=== PATIENT | male | born 1995 | race African-American/Black ===

== ENCOUNTER 2016-10-31 17:54 | Inpatient (IN) | payer OTHER ==
[~2016-10-31] VITALS: Ht 175.3 cm; Wt 112.5 kg
--- NOTE | ~2016-10-31 | PN ---
Unit #: [id number] #: [id number] Patient: DAKSHA LAND [id number] [facility] [address] [place] [address] [id number] MR#: [id number] NAME: DAKSHA LAND ROOM: [facility] Age: 21 Sex: M Admission Date: 10/31/2016 : 1995 Attending Physician: Yusuf Tobar M.D. Admitting Physician: Yusuf Tobar M.D. Primary Care Physician: Primary Care Physician Anamaria LANG NOTES DATE November 05, 2016 DISCUSSION Mr. Land is a 21-year-old male, who was seen today and chart was reviewed and the case was discussed with the staff. He has been anxious, withdrawn, but has not shown any agitation, or irritability, or behavior problems, and he has been cooperative with the treatment recommendations, and he has been taking the medications and tolerating them fairly well with no reported side effects. MENTAL STATUS EXAMINATION Young male, who was casually dressed with fair personal hygiene and appears to be in no acute distress or discomfort. He was awake and alert with impaired attention and concentration. His mood is anxious with a congruent affect. His speech is slow and tangential. His thought processes are disorganized with some looseness of associations. He denies any suicidal or homicidal ideations. His insight and judgment remain significantly impaired. TREATMENT PLAN 1. We will continue him on his current medications and treatment protocol, and will monitor his response to the medications, and make further adjustments as needed. 2. We will continue to followup. Dictated by... Yonas Rogers/kalpesh TD: 11/06/2016 07:46 JOB #: [id number] Unit #: [id number] #: [id number] Patient: DAKSHA LAND PROGRESS NOTES Page 1 of 1 X Yusuf Tobar MD PROGRESS NOTE
--- NOTE | ~2016-10-31 | PN ---
Unit #: [id number] #: [id number] Patient: DAKSHA LAND [id number] [facility] [address] [place] [address] [id number] I MR#: [id number] NAME: DAKSHA LAND ROOM: [facility] Age: 21 Sex: M Admission Date: 10/31/2016 : 1995 Attending Physician: Yusuf Tobar M.D. Admitting Physician: Yusuf Tobar M.D. Primary Care Physician: Primary Care Physician Anamaria LANG NOTES DATE OF SERVICE 11/02/2016 DISCUSSION Mr. Land is a 21-year-old male who was seen today. Chart was reviewed and case was discussed with staff. He has been anxious, withdrawn, and rather seclusive to himself and has been exhibiting bizarre behavior with blunted affect, minimal interaction, and poor eye contact. Meanwhile, he has been taking the medications and tolerating them fairly well with no reported side effects. MENTAL STATUS EXAMINATION Young male who is casually dressed with fair personal hygiene, appears to be in no acute distress or discomfort. The patient was awake and alert with impaired attention and concentration. His mood is anxious with congruent affect. His speech is slow and tangential. His thought processes were disorganized with some looseness of associations and flight of ideas. His insight and judgment remain significantly impaired. TREATMENT PLAN 1. We will continue him on his current medications and treatment protocol. We will monitor his response to the medications and make further adjustments as needed. 2. We will continue to follow up. Dictated by... Yonas Rogers/luis eduardo TD: 11/02/2016 11:38 JOB #: [id number] Unit #: [id number] #: [id number] Patient: DAKSHA LAND PROGRESS NOTES Page 1 of 1 X Yusuf Tobar MD PROGRESS NOTE
--- NOTE | ~2016-10-31 | PA ---
Unit #: [id number] #: [id number] Patient: DKASHA SIU [id number] [facility] [address] [place] [address] [id number] I MR#: [id number] NAME: DAKSHA SIU ROOM: P131 Age: 21 Sex: M Admission Date: 10/31/2016 : 1995 Date of Assessment: 11/01/2016 Attending Physician: Yusuf Tobar M.D. Admitting Physician: Yusuf Tobar M.D. Primary Care Physician: Primary Care Physician No PSYCHIATRIC ASSESSMENT DATE OF SERVICE 11/01/2016. IDENTIFYING DATA Mr. Siu is a 21-year-old, single, male, who is a resident of [place], [place], and was referred to us from his local [facility]. CHIEF COMPLAINT "Suicidal ideation and plan to overdose on any pills I can find." HISTORY OF PRESENT ILLNESS A 21-year-old male, who is active with [facility] and was referred here after the patient reported he was having suicidal ideation with a plan to overdose on pills and stated that he is having homicidal thoughts without a plan towards a kid that he goes to [facility] and the patient refused to give the individual's name and the patient reports that he hears both male and female voices that tell him that he is going to feel that everything and reports that he is feeling suicidal because he moved from [place] 2 years ago and has no family contact and is failing at the [employer] for college entrance "I've nothing and no one." The patient reports that he smokes cannabis 3 to 4 times weekly to self medicate his depression with the last use a couple of weeks ago and does report increasing depression, anxiety, irritability, feelings of hopelessness and helplessness, and command auditory hallucinations and as such, recommendation for inpatient level of care for safety and stabilization was made and the patient was transferred to us. SUBSTANCE ABUSE HISTORY The patient reports using cannabis 3 to 4 times a week. PAST PSYCHIATRIC HISTORY The patient has had psychiatric treatment in [place] and currently he has been receiving his treatment through [facility] and review of the medical records indicate that he has been on a monthly injection with a diagnosis of schizophrenia. PAST MEDICAL HISTORY No acute or chronic medical illnesses. ALLERGIES No known medication allergies. Unit #: [id number] #: [id number] Patient: DAKSHA SIU PERSONAL AND SOCIAL HISTORY A 21-year-old male, who reports that he is single, unemployed, and lives alone and has poor social support system. MENTAL STATUS EXAMINATION Young male, who was casually dressed with fair personal hygiene, appears to be in no acute distress or discomfort. He was awake and alert on interaction with intact orientation to time, place, and person. His mood was anxious and depressed with a congruent affect. His speech was slow and goal directed. He reports having suicidal ideations and auditory hallucinations. His insight and judgment remain significantly impaired. DIAGNOSTIC IMPRESSION Psychiatric: Chronic paranoid schizophrenia. Medical: None. Stressors: Moderate psychosocial stressors. TREATMENT PLAN 1. The patient has presented with a history of mood disorder and psychosis and has been decompensating and will need inpatient hospitalization for safety and stabilization. We will start him back on his home medications. We will adjust the medications and monitor response. 2. Supportive therapy was provided to the patient. 3. Safe, structured, and nourishing environment will be reported. ESTIMATED LENGTH OF STAY 4 to 5 days. ABILITY TO HELP SELF Limited. WILLINGNESS TO HELP SELF The patient appears to be willing to help self. STRENGTHS 1. Communicative. 2. Cooperative. PROBLEMS 1. Chronic dysphoric symptoms. 2. Poor social support system. DISCHARGE CRITERIA This will be contingent upon the patient's ability to show resolution of his depression and psychosis as well as ability to stay safe to himself, particularly after discharge from the hospital. Dictated by... Yonas Rogers/chel Unit #: [id number] #: [id number] Patient: DAKSHA SIU TD: 11/01/2016 08:03 JOB #: [id number] PSYCHIATRIC ASSESSMENT Page 1 of 1 X Yusuf Tobar MD X PSYCHIATRIC ASSESSMENT
--- NOTE | ~2016-10-31 | PN ---
Unit #: [id number] #: [id number] Patient: DAKSHA LAND [id number] [facility] [address] [place] [address] [id number] I MR#: [id number] NAME: DAKHSA LAND ROOM: P131 Age: 21 Sex: M Admission Date: 10/31/2016 : 1995 Attending Physician: Yusuf Tobar M.D. Admitting Physician: Yusuf Tobar M.D. Primary Care Physician: Primary Care Physician Anamaria YI PROGRESS NOTES DATE 11/03/2016 DISCUSSION Mr. Land is a 21-year-old male who was seen today and chart was reviewed and case was discussed with the staff. He has been anxious, withdrawn and rather seclusive. Meanwhile, he has been cooperative taking medications and tolerating them fairly well with no reported side effects. MENTAL STATUS EXAMINATION Young male who was casually dressed with fair personal hygiene and appears to be in no acute distress or discomfort. He was awake and alert on interaction with intact orientation. His mood was anxious with congruent affect. His speech is slow and restricted in content. His thought processes were disorganized with some looseness of associations and paranoid ideations and delusional behavior. His insight and judgement remains significantly impaired. TREATMENT PLAN 1. Will continue on his current medications and treatment protocol. Will monitor his response to the medications and make further adjustments as needed. 2. Will continue to follow up. Dictated by... Yonas Rogers/eduardo TD: 11/03/2016 17:55 JOB #: [id number] Unit #: [id number] #: [id number] Patient: DAKSHA LAND PROGRESS NOTES Page 1 of 1 X Yusuf Tobar MD PROGRESS NOTE
--- NOTE | ~2016-10-31 | DS ---
Unit #: [id number] #: [id number] [facility] [id number] [facility] [address] [place] [address] [id number] I MR#: [id number] NAME: DAKSHA LAND ROOM: 31 Age: 21 Sex: M Admission Date: 10/31/2016 : 1995 Discharge Date: 11/06/2016 Attending Physician: Yusuf Tobar M.D. Primary Care Physician: Primary Care Physician No DISCHARGE SUMMARY IDENTIFYING DATA Ms. Land is a 21-year-old single male, who is a resident of [place], [place] and was self-referred to the hospital from local [facility]. HISTORY OF PRESENT ILLNESS Please see initial psychiatric evaluation for details. PAST PSYCHIATRIC HISTORY Please see initial psychiatric evaluation for details. PAST MEDICAL HISTORY Please see initial psychiatric evaluation for details. HOSPITAL COURSE The patient was admitted to the Adult Psychiatric Unit at [facility] and was oriented to the hospital. Routine p.r.n. medications were initiated and started back on his home medications. The medications were adjusted and Risperdal was initiated and it was gradually titrated up to 2 mg twice a day with tolerability, therapeutic response and finally it was decided that he would be discharged and will continue treatment on an outpatient basis. DISCHARGE DIAGNOSES Psychiatric: [place] I Chronic paranoid schizophrenia. [place] II [place] III None. [place] IV Mild psychosocial stressors. [place] V DISCHARGE MEDICATIONS Risperdal 2 mg twice a day CONDITION AT DISCHARGE Stable. PROGNOSIS Fair. Unit #: [id number] #: [id number] Patient: DAKSHA LAND Dictated by... Yonas Rogers/kalpesh TD: 11/07/2016 10:47 JOB #: [id number] DISCHARGE SUMMARY Page 1 of 1 X Yusuf Tobar MD X DISCHARGE SUMMARY
--- NOTE | ~2016-10-31 | HP ---
Unit #: [id number] #: [id number] Patient: DAKSHA LAND [id number] [place] [address] [id number] MR#: [id number] NAME: DAKSHA LAND ROOM: P131 Age: 21 Sex: M Admission Date: 10/31/2016 : 1995 Attending Physician: Yusuf Tobar M.D. Admitting Physician: Yusuf Tobar M.D. Primary Care Physician: Primary Care Physician No HISTORY AND PHYSICAL HISTORY OF PRESENT ILLNESS Daksha is a 21-year-old male admitted to [address] [place] [address] with depression and verbalizing homicidal and suicidal ideation. PAST MEDICAL HISTORY Nothing significant. PAST SURGICAL HISTORY Nothing reported. ALLERGIES No known drug allergies. SOCIAL HISTORY Smokes less than 1/2 pack per day. Denies alcohol. Admits to using marijuana frequently. FAMILY HISTORY Medically noncontributory. REVIEW OF SYSTEMS CONSTITUTIONAL: No fever or chills. HEENT: Denies any sore throat, ear pain or runny nose. CARDIOVASCULAR: Denies chest pain, irregular heart rhythm or palpitations. CHEST: Denies shortness of breath or cough. No hemoptysis. GASTROINTESTINAL: Denies nausea, vomiting, diarrhea or chronic constipation. ENDOCRINE: Denies history of increased thirst or urination. No recent significant weight loss or gain. GENITOURINARY: Denies dysuria, frequency, or hematuria. SKIN: Denies any rashes. HEMATOLOGIC: Denies history of increased bleeding or bruising. MUSCULOSKELETAL: Denies any hot, swollen joints. No generalized muscle pain. NEUROLOGIC: Denies problems with vision or speech. No frequent, severe headaches. No numbness, tingling or weakness in any extremities. Denies loss of bladder or bowel control. CURRENT MEDICATIONS 1. Milk of Magnesia p.r.n. 2. Maalox p.r.n. 3. Tylenol p.r.n. 4. Nicotine patch 14 mg daily. Unit #: [id number] #: [id number] Patient: DAKSHA LAND PHYSICAL EXAMINATION GENERAL: Alert, well-nourished, in no apparent distress. VITAL SIGNS: Blood pressure 126/72, heart rate 72, respirations 16, temperature 98.6. WEIGHT: 248. HEIGHT: 5 feet 9 inches. SKIN: Warm and dry without rash or lesion. HEENT: Normocephalic. TMs not viewed. Oral and nasal passages clear. Conjunctivae clear. PERRLA. EOMs intact. NECK: Supple without lymphadenopathy or thyromegaly. HEART: Regular rate and rhythm without murmur. LUNGS: Clear. ABDOMEN: Soft, nontender. : Not done. EXTREMITIES: No evidence of cyanosis, clubbing or edema. Moves all without focal deficit. NEUROLOGICAL: Grossly within normal limits. Cranial Nerves: II: Visual paz are intact. III, IV AND : Extraocular movements are intact. Pupils are equal, round and reactive to light. V: Facial sensation is grossly normal. VII: Facial movements and expression are normal. VIII: Auditory acuity grossly intact. IX, X: Uvula is midline. Phonation is normal. XI: Patient shrugs shoulders and turns head normally. XII: Tongue protrudes in the midline. Sensory and Motor Function: Sensory and motor sensation is grossly normal. Motor: moves all extremities well. Coordination: Gait is normal. Deep Tendon Reflexes: Intact. IMPRESSION Psychiatric admission. RECOMMENDATIONS PSYCHIATRIC: Per psychiatrist. MEDICAL: See no contraindication to participate in facility's activities. MEDICAL PROGNOSIS Good. MEDICAL CONDITION Stable. Dictated by... Emily Quispe PChapinAChapin-Zaira. for Yonas Pompa/eduardo TD: 11/01/2016 20:32 JOB #: [id number] Unit #: [id number] #: [id number] Patient: DAKSHA LAND HISTORY AND PHYSICAL Page 1 of 1 X Emily Quispe HISTORY AND PHYSICAL
--- NOTE | ~2016-10-31 | PN ---
Unit #: [id number] #: [id number] Patient: DAKSHA LAND [id number] [facility] [address] [place] [address] [id number] I MR#: [id number] NAME: DAKSHA LAND ROOM: P131 Age: 21 Sex: M Admission Date: 10/31/2016 : 1995 Attending Physician: Yusuf Tobar M.D. Admitting Physician: Yusuf Tobar M.D. Primary Care Physician: Primary Care Physician Anamaria LANG NOTES DATE November 04, 2016 DISCUSSION Ms. Land is a 21-year-old male, with mood disorder and psychosis, who was seen today and chart was reviewed and the case was discussed with the staff. He has been anxious, withdrawn, and rather seclusive to himself but does appear to be showing some improvement in mood and daily function. He has been taking the medications and tolerating them fairly well with no reported side effects. MENTAL STATUS EXAMINATION Young male, who was casually dressed with fair personal hygiene and appears to be in no acute distress or discomfort. He was awake and alert with impaired attention and concentration. His mood is anxious with a congruent affect. His speech is slow and restricted in content. He denies any suicidal or homicidal ideations. His insight and judgment remain significantly impaired. TREATMENT PLAN 1. We will continue him on his current medications and treatment protocol, and will add Risperdal, and will continue to monitor his response, and make further adjustments as needed. 2. We will continue to followup. Dictated by... Yonas Rogers/kalpesh TD: 11/05/2016 08:13 JOB #: [id number] Unit #: [id number] #: [id number] Patient: DAKSHA LAND PROGRESS NOTES Page 1 of 1 X Yusuf Tobar MD PROGRESS NOTE
[2016-11-01 09:53] LABS: BASOPHIL% 0.8 % (0-2.5); EOSINOPHIL# 0.1 X10e3 (0-0.7); EOSINOPHIL% 1.9 % (0.0-7.0); HEMATOCRIT 44.2 % (38.0-50.0); HEMOGLOBIN 14.6 gm/dL (13.0-16.0); LYMPHOCYTE# 2.6 X10e3 (1.0-3.5); LYMPHOCYTE% 39.9 % (17.0-45.0); MEAN CORPUSCULAR HEMOGLOBIN 29.7 PG (28-34); MONOCYTE# 0.6 X10e3 (0-1.0); MONOCYTE% 9.4 % (3.0-12.0); NEUTROPHIL# 3.1 X10e3 (1.5-7.1); PLATELET COUNT 300 X10e3 (140-420); RED BLOOD COUNT 4.91 X10e (3.90-5.60); RED CELL DISTRIBUTION WIDTH 12.6 % (11.0-15.5); WHITE BLOOD COUNT 6.4 X10e3 (4.0-10.5)
[2016-11-01 10:12] LABS: URINE APPEARANCE CLEAR; URINE BILIRUBIN NEG (NEG); URINE BLOOD NEG (NEG); URINE COLOR YELLOW; URINE GLUCOSE NEG (NEG); URINE KETONE NEG (NEG); URINE LEUKOCYTE ESTERASE NEG (NEG); URINE NITRATE NEG (NEG); URINE PROTEIN NEG (NEG); URINE SPECIFIC GRAVITY 1.012 (1.003-1.035); URINE UROBILINOGEN 0.2 MG/DL (NEG)
[2016-11-01 10:14] LABS: DIFF IND NO
[2016-11-01 10:41] LABS: ALBUMIN SERUM 4.3 g/dL (3.5-5.0); CALCIUM SERUM 9.4 mg/dL (8.4-10.2); GLOM FILT RATE Estimated 122.4 mL/min (>60); POTASSIUM 4.2 mmol/L (3.5-5.1); PROTEIN TOTAL SERUM 7.5 g/dL (6.0-8.3)
[2016-11-01 10:47] LABS: AMPHETAMINE NEG (NEG); BARBITURATES NEG (NEG); BENZODIAZEPINES NEG (NEG); COCAINE NEG (NEG); MARIJUANA NEG (NEG); OPIATES NEG (NEG); TRICYCLIC ANTIDEPRESSANTS NEG (NEG); U METHADONE NEG (NEG)
== END 2016-11-06 12:01 | disposition home or self-care (01) | DRG 885 ==
LOC: P1S 20:15
PROVIDERS: Psychiatry & Neurology Psychiatry
DX: F20.0 Paranoid schizophrenia (principal); R45.851 Suicidal ideations; F17.210 Nicotine dependence, cigarettes, uncomplicated
CPT/HCPCS: 80053; 80307; 81003; 85025